=== PATIENT | female | born 1975 | race Caucasian/White ===

== ENCOUNTER 2017-06-06 08:33 | Emergency (ER) | payer MEDICAID ==
[~2017-06-06] VITALS: Ht 154.9 cm; Wt 65.5 kg
[~2017-06-06 08:33] MED LIST: MOTRIN
[2017-06-06 08:35] VITALS: BP 111/67
--- NOTE | 2017-06-06 08:41 | NUR ---
PT AMBULATED TO BED 7
--- NOTE | 2017-06-06 08:42 | NUR ---
Note undone in EDM - 06/06/17 at 0853 by [email or web address] 2/F PRESENT TO ER C/O NAUSEA & EPIGASTRIC PAIN x YESTERDAY. PT STATES PAIN 8/10 SHARP RADIATING TO WHOLE ABDOMEN& BACK. DENIES V/D; SKIN IS PINK/WARM/DRY; AAOX4 WITH EVEN AND STEADY GAIT; LUNGS CLEAR BL; HR EVEN AND REGULAR; PT DENIES ANY FEVER, CP, SOB, OR COUGH AT THIS TIME; PATIENT POSITIONED FOR COMFORT; HOB ELEVATED; BEDRAILS UP X2; BED DOWN. ER MADE AWARE OF PT STATUS.
--- NOTE | 2017-06-06 08:42 | NUR ---
42/F BIB SON C/O NAUSEA & EPIGASTRIC PAIN x YESTERDAY. PT STATES PAIN 8/10 SHARP RADIATING TO WHOLE ABDOMEN & BACK. DENIES V/D; SKIN IS PINK/WARM/DRY; AAOX4 WITH EVEN AND STEADY GAIT; LUNGS CLEAR BL; HR EVEN AND REGULAR; PT DENIES ANY FEVER, CP, SOB, OR COUGH AT THIS TIME; PATIENT POSITIONED FOR COMFORT; HOB ELEVATED; BEDRAILS UP X2; BED DOWN. ER MD MADE AWARE OF PT STATUS.
--- NOTE | 2017-06-06 09:08 | NUR ---
PT C/O NAUSEA & EPIGASTRIC PAIN 05/12.NOTIFIED DR SAENZ.
[2017-06-06] MEDS ORDERED: ONDANSETRON 4 MG/2 ML VIAL IVP ONE (09:10)
[2017-06-06] MEDS ORDERED: HYDROmorphone 1 MG/ML AMP IVP ONE ×2 (09:10→09:50)
--- NOTE | 2017-06-06 09:16 | NUR ---
INSERTED IV CATH NO 22G RIGHT HAND; PT TOLERATED PROCEDURE WELL. IV PATENT& INTACT. ADMINISTERED MEDS OREDER.
--- NOTE | 2017-06-06 09:31 | NUR ---
LAB AT BEDSIDE
--- NOTE | 2017-06-06 09:41 | NUR ---
PT STS PAIN 5/10.Patient appears to be resting comfortably in bed. Vital Signs within normal limits. Respirations even and unlabored.WILL CONTINUE TO MONITOR.
[2017-06-06 09:42] LABS: BASOPHILS # (AUTO) 0.1 K/uL (0.00-0.22); BASOPHILS % (AUTO) 2.3 % (0.0-2.0); EOSINOPHILS # (AUTO) 0.1 K/uL (0-0.4); EOSINOPHILS % (AUTO) 2.4 % (0.0-4.0); HEMOGLOBIN 13.3 g/dL (12.0-16.0); LYMPHOCYTES # (AUTO) 1.1 K/uL (2.5-16.5); LYMPHOCYTES % (AUTO) 19.6 % (20.5-51.1); MEAN CORPUSCULAR HEMOGLOBIN 31 pg (27-31); MEAN CORPUSCULAR HGB CONC 33 g/dL (33-37); MEAN CORPUSCULAR VOLUME 93 fL (80-94); MONOCYTES # (AUTO) 0.5 K/uL (0.8-1.0); MONOCYTES % (AUTO) 8.5 % (1.7-9.3); NEUTROPHILS # (AUTO) 3.8 K/uL (1.8-7.7); NEUTROPHILS % (AUTO) 67.2 % (42.2-75.2); PLATELET COUNT (AUTO) 269 K/uL (140-450); RED BLOOD CELL COUNT(AUTO) 4.31 MIL/uL (4.20-5.40); RED CELL DISTRIBUTION WIDTH 12.5 % (11.6-13.7); WHITE BLOOD COUNT (AUTO) 5.6 K/uL (4.8-10.8)
[2017-06-06 09:55] LABS: ANION GAP 9.3 (8-16); CARBON DIOXIDE 27.3 mmol/L (21-32); CREATININE 0.6 mg/dL (0.6-1.3); POTASSIUM 3.6 mmol/L (3.5-5.1)
[2017-06-06 09:59] LABS: ALBUMIN 3.2 g/dL (3.4-5.0); TOTAL BILIRUBIN 0.3 mg/dL (0.0-1.0)
[2017-06-06 10:03] LABS: PROTHROMBIN TIME 10.8 secs (10.8-13.4)
--- NOTE | 2017-06-06 10:41 | NUR ---
Note undone in [facility] - 06/06/17 at 1104 by [email or web address] PT FEEL ITCHING & RASHES ALL BODY. NOTIFIED DR SAENZ. Addendum: 06/06/17 at 1043 by [email or web address] Amendment undone in [facility] - 06/06/17 at 1104 by [email or web address] Patient being reevaluated by DR SAENZ at bedside.
--- NOTE | 2017-06-06 10:41 | NUR ---
PT FEELS ITCHING & RASHES ALL BODY. NOTIFIED DR SAENZ.
[2017-06-06] MEDS ORDERED: diphenhydrAMINE 50 MG/ML VIAL IVP ONE (10:45)
--- NOTE | 2017-06-06 10:47 | NUR ---
ADMINISTERED BENADRYL 50 MG IV & IVF ORDER.
[2017-06-06] MEDS ORDERED: NACL 0.9% 1,000 ML IV ONE (10:50)
--- NOTE | 2017-06-06 11:08 | NUR ---
Patient appears to be resting comfortably in bed. Vital Signs within normal limits. Respirations even and unlabored.WILL CONTINUE TO MONITOR.
--- NOTE | 2017-06-06 12:20 | NUR ---
IV removed, catheter intact and site benign. Applied folded 4x4 gauze and tape to stop bleeding. Addendum: 06/06/17 at 1230 by [email or web address] DENIES ITCHING AT THIS TIME.
[2017-06-06 12:24] VITALS: BP 101/62
== END 2017-06-06 12:24 | disposition home or self-care (01) ==
LOC: MED 08:33
DX: R10.13 Epigastric pain (principal); R11.2 Nausea with vomiting, unspecified
CPT/HCPCS: 36415; 74176; 80053; 81025; 82150; 83615; 83690; 85025; 85610; 85730; 96361; 96374; 96375; 96376; 99285; J1170; J1200; J2405; J7030; 81002

== ENCOUNTER 2019-01-30 07:26 | Emergency (ER) | payer MEDICAID ==
[~2019-01-30] VITALS: Ht 154.9 cm; Wt 62.6 kg
[2019-01-30 07:31] VITALS: BP 128/102
--- NOTE | 2019-01-30 07:38 | NUR ---
TO BED 5 WITH STEADY GAIT
--- NOTE | 2019-01-30 07:42 | NUR ---
dr thomas at bedside
[2019-01-30] MEDS ORDERED: ACETAMINOPHEN 325 MG TAB PO ONE (07:45)
--- NOTE | 2019-01-30 07:45 | NUR ---
PATIENT PRESENTS TO ED WITH C/O SORE THROAT, BODY ACHES, HEADACHE X LAST NIGHT. PT DENIES N/V/D; SKIN IS PINK/WARM/DRY; AAOX4 WITH EVEN AND STEADY GAIT; LUNGS CLEAR BL; HR EVEN AND REGULAR; PATIENT STATES PAIN OF 10/10 AT THIS TIME; PATIENT POSITIONED FOR COMFORT; HOB ELEVATED; BEDRAILS UP X2; BED DOWN.PENDING ER MD EVALUATION
--- NOTE | 2019-01-30 07:48 | NUR ---
FLU SWAB AND STREP SWAB DONE. LAB NOTIFIED FOR PICK-UP
--- NOTE | 2019-01-30 08:28 | NUR ---
PT C/O PAIN AT 07/12. DR MERCER MADE AWARE.
[2019-01-30] MEDS ORDERED: KETOROLAC 60 MG/2 ML VIAL IM ONE (08:45)
[2019-01-30 09:23] VITALS: BP 122/87
--- NOTE | 2019-01-30 09:24 | NUR ---
Patient discharged with v/s stable. Written and verbal after care instructions given and explained. Patient alert, oriented and verbalized understanding of instructions. Ambulatory with steady gait. All questions addressed prior to discharge. ID band removed. Patient advised to follow up with PMD. Rx of elías mejia given. Patient educated on indication of medication including possible reaction and side effects. Opportunity to ask questions provided and answered.
== END 2019-01-30 09:24 | disposition home or self-care (01) ==
LOC: MED 07:26
DX: B34.9 Viral infection, unspecified (principal); R03.0 Elevated blood-pressure reading, without diagnosis of hypertension; Z79.899 Other long term (current) drug therapy
CPT/HCPCS: 87081; 87804; 96372; 99283; J1885

== ENCOUNTER 2019-03-21 12:56 | Emergency (ER) | payer MEDICAID ==
[~2019-03-21] VITALS: Ht 157.5 cm; Wt 67.2 kg
[2019-03-21 13:03] VITALS: BP 120/79
--- NOTE | 2019-03-21 13:05 | NUR ---
PT AMBULATED TO ER BED 04
--- NOTE | 2019-03-21 13:17 | NUR ---
PT C/O ABSCESS INNER LEFT THIGH FOR 4 DAYS AND HAD FEVER 104 F LAST NIGHT. PT HAS BEEN TREATED FOR SAME PROBLEM BEFORE. DENIES N/V/D; SKIN IS PINK/WARM/DRY; ERYTHEMA AND EDEMA NOTICED ON PT'S LEFT INNER THIGH; PT STATES IT IS PAINFUL WHILE WALKING. AAOX4 WITH EVEN AND STEADY GAIT; PT DENIES ANY CP, SOB, OR COUGH AT THIS TIME; PATIENT STATES PAIN OF 10/10 AT THIS TIME; VSS; PATIENT POSITIONED FOR COMFORT; HOB ELEVATED; BEDRAILS UP X1; BED DOWN. ER MD MADE AWARE OF PT STATUS.
[2019-03-21] MEDS ORDERED: LIDOCAINE 1% 500 MG/50 ML VIAL INJ SCH (13:30)
[2019-03-21] MEDS ORDERED: LIDOCAINE MPF 1% - 5 mL VIAL 5 ML ONE (14:12)
--- NOTE | 2019-03-21 14:25 | NUR ---
ZACH DUTTA FOR I&D PROCEDURE AT BEDSIDE
[2019-03-21 14:52] VITALS: BP 131/65
--- NOTE | 2019-03-21 14:53 | NUR ---
Patient discharged with v/s stable. Written and verbal after care instructions given and explained. Patient alert, oriented and verbalized understanding of instructions. Ambulatory with steady gait. All questions addressed prior to discharge. ID band removed. Patient advised to follow up with PMD. Rx of Spencer and Keflex given. Patient educated on indication of medication including possible reaction and side effects. Opportunity to ask questions provided and answered.
== END 2019-03-21 14:53 | disposition home or self-care (01) ==
LOC: MED 12:56
DX: L02.416 Cutaneous abscess of left lower limb (principal); F17.200 Nicotine dependence, unspecified, uncomplicated; Z79.899 Other long term (current) drug therapy
CPT/HCPCS: 10060; 81002; 81025; 99283; J2001

== ENCOUNTER 2019-10-06 21:54 | Emergency (ER) | payer MEDICAID ==
[~2019-10-06] VITALS: Ht 165.1 cm; Wt 56.7 kg
[2019-10-06 22:05] VITALS: BP 132/75
--- NOTE | 2019-10-06 22:08 | NUR ---
to lobby a/w bed ambulatory
--- NOTE | 2019-10-06 22:15 | NUR ---
EKG PERFORMED IN TRIAGE ROOM WITH FAMILY MEMBER PRESENT
--- NOTE | 2019-10-06 23:09 | NUR ---
PT AMBULATED TO BED 4 WITH FAMILY MEMBER
--- NOTE | 2019-10-06 23:20 | NUR ---
44 YEAR OLD FEMALE COMPLAINS OF 9/10 CHEST PAIN ON INSPIRATION X 2 DAYS. PATIENT STATES THAT SHE HAS HAD PAIN ON INSPIRATION, COUGH WITHOUT MUCUS. PATIENT HAS DIMINISHED LUNG SOUNDS ON AUSCULTATION, PATIENT HAS DIFFICULTY WITH DEEP INHALATION. BREATHING EVEN AND UNLABORED. PATIENT STATES SHE ALSO HAS A HEADACHE. PATIENT ALERT AND ORIENTED, BED IN LOWEST POSITION, LOCKED, BED RAIL UPX1. TRANSLATION USED. PMH - HTN MEDICATIONS - NONE ALLERGIES - NONE Addendum: 10/06/19 at 2396 by MEDJJ BP 132/75
[2019-10-07] MEDS ORDERED: ALBUTEROL 0.083% 2.5 MG/3 ML NEBU INH ONE (00:25)
[2019-10-07] MEDS ORDERED: KETOROLAC 60 MG/2 ML VIAL IM ONE (00:25)
[2019-10-07] MEDS ORDERED: predniSONE 20 MG TAB PO ONE (00:25)
[2019-10-07] MEDS ORDERED: HYDROcodone/APAP 5/325 MG 1 TAB TAB PO ONE (00:25)
--- NOTE | 2019-10-07 01:30 | NUR ---
PATIENT ALERT AND ORIENTED, BREATHING EVEN AND UNLABORED
[2019-10-07 02:24] VITALS: BP 121/78
--- NOTE | 2019-10-07 02:24 | NUR ---
Patient discharged with v/s stable. Written and verbal after care instructions ABOUT INFLUENZA given and explained. Patient alert, oriented and verbalized understanding of instructions. Ambulatory with steady gait. All questions addressed prior to discharge. ID band removed. Patient advised to follow up with PMD. Rx of TAMIFLU AND NAPROSYN given. Patient educated on indication of medication including possible reaction and side effects. Opportunity to ask questions provided and answered.
== END 2019-10-07 02:24 | disposition home or self-care (01) ==
LOC: MED 21:54
DX: J11.1 Influenza due to unidentified influenza virus with other respiratory manifestations (principal); I10 Essential (primary) hypertension; Z79.899 Other long term (current) drug therapy
CPT/HCPCS: 87804; 93005; 94640; 96372; 99284; J1885; J7512; J7613

== ENCOUNTER 2019-11-30 18:19 | Emergency (ER) | payer MEDICAID ==
[~2019-11-30] VITALS: Ht 157.5 cm; Wt 59.0 kg
[2019-11-30 18:33] VITALS: BP 124/81
--- NOTE | 2019-11-30 18:33 | NUR ---
PATIENT AMB TO BED 6
--- NOTE | 2019-11-30 18:52 | NUR ---
44 Y/O FEMALE C/O HEADACHE, DIZZINESS, BLURRED VISION, AND FATIGUE X 1 WK. 7/10 GENERALIZED BODY ACHES. DENIES CHEST PAIN, N/V/D. STATES SHE HAS UNEXPLAINED WEIGHT LOSS. DENIES CHANGE IN APPETITE. RR EVEN AND UNLABORED, POSITIONED FOR COMFORT. X 1 SIDE RAIL RAISED, BED LOCKED AND IN LOW POSITION. MEDHX: DENIES ALLERGIES: NKA
--- NOTE | 2019-11-30 18:54 | NUR ---
LAB AT BEDSIDE
[2019-11-30 19:02] LABS: APPEARANCE,URINE CLEAR (CLEAR); COLOR,URINE YELLOW (YELLOW)
[2019-11-30 19:03] LABS: PH,URINE 5.5 (5.0-9.0)
[2019-11-30 19:03] LABS: BASOPHILS % (AUTO) 0.2 % (0.0-2.0); EOSINOPHILS # (AUTO) 0.1 K/uL (0-0.4); EOSINOPHILS % (AUTO) 0.9 % (0.0-4.0); HEMATOCRIT 41.6 % (36-48); HEMOGLOBIN 14.3 g/dL (12.0-16.0); LYMPHOCYTES # (AUTO) 2.4 K/uL (2.5-16.5); MEAN CORPUSCULAR HEMOGLOBIN 31 pg (27-31); MEAN CORPUSCULAR HGB CONC 35 g/dL (33-37); MEAN CORPUSCULAR VOLUME 89.9 fL (80-94); MONOCYTES # (AUTO) 0.5 K/uL (0.8-1.0); MONOCYTES % (AUTO) 6.5 % (1.7-9.3); NEUTROPHILS % (AUTO) 62.4 % (42.2-75.2); PLATELET COUNT (AUTO) 362 K/uL (140-450); RED BLOOD CELL COUNT(AUTO) 4.63 MIL/uL (4.20-5.40); RED CELL DISTRIBUTION WIDTH 13.1 % (11.6-13.7); WHITE BLOOD COUNT (AUTO) 8.1 K/uL (4.8-10.8)
[2019-11-30 19:06] LABS: BLOOD, URINE 3+ (NEGATIVE); UGLUCOSE NEGATIVE (NEGATIVE)
[2019-11-30 19:07] LABS: BILIRUBIN,URINE NEGATIVE (NEGATIVE); LEUKOCYTE ESTERASE ,URINE NEGATIVE (NEGATIVE); NITRITE, URINE NEGATIVE (NEGATIVE)
[2019-11-30 19:09] LABS: WBC,URINE NONE SEEN /HPF (0-5)
--- NOTE | 2019-11-30 19:13 | NUR ---
REPORT GIVEN TO SERGIO CANTRELL. TRANSFER OF CARE AT THIS TIME
--- NOTE | 2019-11-30 19:13 | NUR ---
REPORT RECIEVED FROM DANIEL HILL. PATIENT SITTING UP IN BED. NO NEEDS ADDRESSED AT THIS TIME.
[2019-11-30 19:16] LABS: ALBUMIN 3.7 g/dL (3.4-5.0); ANION GAP 8.7 (8-16); CARBON DIOXIDE 28.5 mmol/L (21-32); CREATININE 0.7 mg/dL (0.6-1.3); POTASSIUM 4.2 mmol/L (3.5-5.1); TOTAL BILIRUBIN 0.2 mg/dL (0.0-1.0)
[2019-11-30 20:31] VITALS: BP 124/81
--- NOTE | 2019-11-30 20:32 | NUR ---
PATIENT STATES SHE DOES NOT WANT TO WAIT TO BE TREATED BY DOCTOR. LWBS AT THIS TIME.
--- NOTE | 2019-11-30 20:33 | NUR ---
PATIENT ELOPED FROM FACILITY. DISCHARGE INSTRUCTIONS NOT GIVEN TO PATIENT. DR. RASHEED NOTIFIED.
== END 2019-11-30 20:33 | disposition left against medical advice (07) ==
LOC: MED 18:19
DX: R42 Dizziness and giddiness (principal); I10 Essential (primary) hypertension
CPT/HCPCS: 36415; 80053; 81001; 85025; 99283

== ENCOUNTER 2020-10-01 16:01 | Emergency (ER) | payer MEDICAID ==
[~2020-10-01] VITALS: Ht 162.6 cm; Wt 59.9 kg
[2020-10-01 16:06] VITALS: BP 152/71
[2020-10-01] MEDS ORDERED: KETOROLAC 30 MG/ML VIAL IM ONE (16:25)
[2020-10-01] MEDS ORDERED: KETOROLAC 30 MG/ML VIAL ONE (16:44)
--- NOTE | 2020-10-01 16:48 | NUR ---
PT DECLINED TORADOL, STATED SHE THOUGHT SHE WAS ALLERGIC TO TORADOL. SWAPNIL CAMPO CHANGED ORDER TO NORCO, PT DECLINED STATING DOES NOT HELP WITH PAIN. PER PT PT MISTOOK TORADOL OR TYLENOL WITH CODEINE AND REQUESTING TORADOL IM. SWAPNIL CAMPO MADE AWARE. TORADOL GIVEN IM.
[2020-10-01] MEDS: HYDROcodone/APAP 5/325 MG 1 TAB TAB PO ONE (16:50)
[2020-10-01] MEDS: LIDOCAINE MPF 1% 10 MG/ML VIAL INJ ONE (16:50)
--- NOTE | 2020-10-01 16:54 | NUR ---
45 Y/F PRESENTS TO ED C/O SUPRAPUBIC BOIL X4 DAYS /AXILLARY BOIL X1 DAY CAUSING PAIN, AND MILD BLEEDING. PAIN UNRELIEVED BY NORCO. NO PMH NKDA
[2020-10-01 17:27] VITALS: BP 152/71
--- NOTE | 2020-10-01 17:28 | NUR ---
Patient discharged with v/s stable. Written and verbal after care instructions given and explained. Patient alert, oriented and verbalized understanding of instructions. Ambulatory with steady gait. All questions addressed prior to discharge. ID band removed. Patient advised to follow up with PMD. Rx of BACTRIM, NORCO given. Patient educated on indication of medication including possible reaction and side effects. Opportunity to ask questions provided and answered.
== END 2020-10-01 17:28 | disposition home or self-care (01) ==
LOC: MED 16:01
DX: L02.411 Cutaneous abscess of right axilla (principal); Z79.899 Other long term (current) drug therapy; Z98.890 Other specified postprocedural states
CPT/HCPCS: 10060; 99283; J1885; J2001

== ENCOUNTER 2020-10-05 09:18 | Emergency (ER) | payer MEDICAID ==
[~2020-10-05] VITALS: Ht 154.9 cm; Wt 61.2 kg
[2020-10-05 09:25] VITALS: BP 119/80
--- NOTE | 2020-10-05 09:29 | NUR ---
Pt to lobby to wait to be seen.
--- NOTE | 2020-10-05 09:43 | NUR ---
PT TAKEN TO CHAIR C. DR. SHAY EVALUATING PATIENT.
[2020-10-05 11:21] VITALS: BP 119/80
--- NOTE | 2020-10-05 11:22 | NUR ---
Patient does not wish to proceed with medical care recommended by Dr. Olivo. Patient given information related to possible complications, up to and including , which could occur as a result of leaving hospital at this time. Patient verbalizes understanding of risks involved leaving against medical advice. Patient has signed AMA form.
== END 2020-10-05 11:22 | disposition left against medical advice (07) ==
LOC: MED 09:18
DX: L02.411 Cutaneous abscess of right axilla (principal); Z48.00 Encounter for change or removal of nonsurgical wound dressing
CPT/HCPCS: 99281

== ENCOUNTER 2021-06-20 20:13 | Emergency (ER) | payer MEDICAID ==
[~2021-06-20] VITALS: Ht 154.9 cm; Wt 61.2 kg
[2021-06-20 20:24] VITALS: BP 152/90
--- NOTE | 2021-06-20 20:24 | NUR ---
TO BED VIA WHEEL CHAIR
--- NOTE | 2021-06-20 20:45 | NUR ---
46 Y/O FEMALE C/O L THIGH AND L KNEE PAIN S/P FALLING IN THE STORE AFTER STEPPING ON STRAWBERRY AT 1920. PT NOW C/O 10/10 PAIN THAT SHE DESCRIBES SHARP. PT ABLE TO WIGGLE TOES WITH FULL SENSATION. PT STATES PAIN IS WORSE WITH MOVEMENT. PT DENIES TAKING ANYTHING FOR PAIN. PT A/O X4 WITH EVEN AND UNLABORED RESPIRATIONS. PMH:DENIES NKDA
--- NOTE | 2021-06-20 21:17 | NUR ---
DR DALE AT BEDSIDE EVALUATING PT
[2021-06-20] MEDS ORDERED: ONDANSETRON 4 MG ODT PO ONE (21:20)
[2021-06-20] MEDS ORDERED: HYDROcodone/APAP 5/325 MG 1 TAB TAB PO ONE (21:20)
--- NOTE | 2021-06-20 21:21 | NUR ---
RAD AT BEDSIDE
[2021-06-20] MEDS ORDERED: IBUP-2213 PO (22:02)
--- NOTE | 2021-06-20 22:21 | NUR ---
Patient discharged with v/s stable. Written and verbal after care instructionsABOUT ANKLE SPRAIN AND KNEE SPRAIN given and explained. Patient alert, oriented and verbalized understanding of instructions. Ambulatory with steady gait. All questions addressed prior to discharge. ID band removed. Patient advised to follow up with PMD. Rx of IBUPROFEN given. Patient educated on indication of medication including possible reaction and side effects. Opportunity to ask questions provided and answered.
== END 2021-06-20 22:21 | disposition home or self-care (01) ==
LOC: MED 20:13
DX: S93.402A Sprain of unspecified ligament of left ankle, initial encounter (principal); M25.562 Pain in left knee; Z79.899 Other long term (current) drug therapy; W01.0XXA Fall on same level from slipping, tripping and stumbling without subsequent striking against object, initial encounter; Y93.89 Activity, other specified; Y92.89 Other specified places as the place of occurrence of the external cause; Y99.8 Other external cause status
CPT/HCPCS: 73562; 73610; 99284; Q0092; Q0162

== ENCOUNTER 2021-10-20 16:59 | Emergency (ER) | payer MEDICAID ==
[~2021-10-20] VITALS: Ht 154.9 cm; Wt 63.5 kg
[~2021-10-20 16:59] MED LIST changes: +IBUP-2213 PO
[2021-10-20 17:16] VITALS: BP 142/82
[2021-10-20] MEDS ORDERED: DICYCLOMINE HCL LIQUID 20 MG, ALUMINUM HYD/MAG/SIMETHICONE 30 ML, LIDOCAINE VISCOUS 2% ... PO ONE ×3 (17:40)
[2021-10-20] MEDS ORDERED: ONDANSETRON 4 MG ODT PO ONE (17:40)
[2021-10-20 17:53] LABS: APPEARANCE,URINE CLEAR (CLEAR); BILIRUBIN,URINE NEGATIVE (NEGATIVE); BLOOD, URINE TRACE-I (NEGATIVE); COLOR,URINE YELLOW (YELLOW); LEUKOCYTE ESTERASE ,URINE NEGATIVE (NEGATIVE); NITRITE, URINE NEGATIVE (NEGATIVE); UGLUCOSE NEGATIVE (NEGATIVE)
[2021-10-20 18:12] LABS: BASOPHILS % (AUTO) 0.2 % (0.0-2.0); EOSINOPHILS # (AUTO) 0.1 K/uL (0-0.4); EOSINOPHILS % (AUTO) 0.8 % (0.0-4.0); HEMATOCRIT 42.7 % (36-48); HEMOGLOBIN 14.8 g/dL (12.0-16.0); LYMPHOCYTES # (AUTO) 1.9 K/uL (2.5-16.5); LYMPHOCYTES % (AUTO) 18.2 % (20.5-51.1); MEAN CORPUSCULAR HEMOGLOBIN 31 pg (27-31); MEAN CORPUSCULAR HGB CONC 35 g/dL (33-37); MEAN CORPUSCULAR VOLUME 90.1 fL (80-94); MONOCYTES # (AUTO) 0.6 K/uL (0.8-1.0); MONOCYTES % (AUTO) 6.2 % (1.7-9.3); NEUTROPHILS # (AUTO) 7.6 K/uL (1.8-7.7); NEUTROPHILS % (AUTO) 74.6 % (42.2-75.2); PLATELET COUNT (AUTO) 368 K/uL (140-450); RED BLOOD CELL COUNT(AUTO) 4.74 MIL/uL (4.20-5.40); RED CELL DISTRIBUTION WIDTH 13.3 % (11.6-13.7); WHITE BLOOD COUNT (AUTO) 10.2 K/uL (4.8-10.8)
[2021-10-20 18:13] LABS: RBC,URINE 0-5 /HPF (0-5); WBC,URINE NONE SEEN /HPF (0-5)
[2021-10-20] MEDS ORDERED: DICYCLOMINE HCL LIQUID 10 MG/5 ML UDC ONE (18:18)
[2021-10-20] MEDS ORDERED: ALUMINUM HYD/MAG/SIMETHICONE 30 ML UDC ONE (18:18)
[2021-10-20 18:30] LABS: ALBUMIN 3.6 g/dL (3.4-5.0); ANION GAP 12.7 (8-16); CARBON DIOXIDE 28.2 mmol/L (21-32); CREATININE 0.6 mg/dL (0.6-1.3); POTASSIUM 3.9 mmol/L (3.5-5.1); TOTAL BILIRUBIN 0.5 mg/dL (0.0-1.0)
[2021-10-20] MEDS ORDERED: MORPHINE SULFATE 4 MG/ML SYR IM ONE (19:25)
[2021-10-20] MEDS ORDERED: HYDROcodone/APAP 7.5/325 MG 1 TAB PO ONE (20:35)
[2021-10-20] MEDS ORDERED: TAMS0.4C96 PO (20:39)
[2021-10-20] MEDS ORDERED: IBUP-2213 PO (20:39)
[2021-10-20] MEDS ORDERED: HYDR-5080 PO (20:39)
[2021-10-20 21:00] VITALS: BP 142/82
--- NOTE | 2021-10-20 21:00 | NUR ---
Patient discharged with v/s stable. Written and verbal after care instructions given and explained. Patient alert, oriented and verbalized understanding of instructions. Ambulatory with steady gait. All questions addressed prior to discharge. ID band removed. Patient advised to follow up with PMD. Rx of FLOMAX, IBUPROFEN, AND NORCO given. Patient educated on indication of medication including possible reaction and side effects. Opportunity to ask questions provided and answered.
[2021-10-23] MEDS ORDERED: LIDOCAINE 2% 100 MG/5 ML UJET TP ONE (16:05)
== END 2021-10-20 21:00 | disposition home or self-care (01) ==
LOC: MED 16:59
DX: N23 Unspecified renal colic (principal); Z79.899 Other long term (current) drug therapy
CPT/HCPCS: 36415; 74176; 80053; 81001; 81025; 83690; 85025; 96372; 99284; J2270; Q0162

== ENCOUNTER 2022-06-22 11:12 | Emergency (ER) | payer MEDICAID ==
[~2022-06-22] VITALS: Ht 154.9 cm; Wt 68.0 kg
[~2022-06-22 11:12] MED LIST changes: +HYDR-5080 PO; +TAMS0.4C96 PO
[2022-06-22 11:24] VITALS: BP 131/77
--- NOTE | 2022-06-22 11:32 | NUR ---
PT AMB TO BED 5.
--- NOTE | 2022-06-22 11:45 | NUR ---
MD STRICKLAND AT BEDSIDE FOR EVALUATION
--- NOTE | 2022-06-22 12:01 | NUR ---
47YO FEMALE PT C/O INCONSISTENT PRESSURED 8/10 CHEST PAIN X4DAYS. EPISODES LASTING ABOUT 1-2HRS ALONG W/ HEADACHE , BLURRY VISION AND L SIDED NUMBING. DENIES RELIEF AFTER TYLENOL. DENIES LOSS OF SENSATION, SOB, N/V/D, FEVER OR CHILLS. PT AAOX4, ON MEDICAL OFFICE REPRESENTATIVE. NO VISIBLE DISTRESS. RSPIRATIONS EVEN AND UNLABORED. AMBULATORY W/ STEADY GAIT. YAKUT SPEAKING. HX: DENIES NKA
[2022-06-22] MEDS: KETOROLAC 30 MG/ML VIAL IM ONE (12:20)
[2022-06-22 12:35] LABS: BASOPHILS % (AUTO) 0.2 % (0.0-2.0); EOSINOPHILS # (AUTO) 0.1 K/uL (0-0.4); EOSINOPHILS % (AUTO) 0.8 % (0.0-4.0); HEMATOCRIT 40.8 % (36-48); HEMOGLOBIN 13.9 g/dL (12.0-16.0); LYMPHOCYTES % (AUTO) 30.5 % (20.5-51.1); MEAN CORPUSCULAR HEMOGLOBIN 31 pg (27-31); MEAN CORPUSCULAR HGB CONC 34 g/dL (33-37); MEAN CORPUSCULAR VOLUME 90.1 fL (80-94); MONOCYTES # (AUTO) 0.4 K/uL (0.8-1.0); MONOCYTES % (AUTO) 6.6 % (1.7-9.3); NEUTROPHILS # (AUTO) 4.2 K/uL (1.8-7.7); NEUTROPHILS % (AUTO) 61.9 % (42.2-75.2); PLATELET COUNT (AUTO) 348 K/uL (140-450); RED BLOOD CELL COUNT(AUTO) 4.52 MIL/uL (4.20-5.40); RED CELL DISTRIBUTION WIDTH 13.8 % (11.6-13.7); WHITE BLOOD COUNT (AUTO) 6.7 K/uL (4.8-10.8)
[2022-06-22 13:32] LABS: ALBUMIN 3.4 g/dL (3.4-5.0); ANION GAP 13.1 (8-16); ASPARTATE AMINOTRANSFERASE 14 U/L (15-37); CARBON DIOXIDE 24.7 mmol/L (21-32); CHLORIDE 106 mmol/L (98-107); CREATININE 0.7 mg/dL (0.6-1.3); GFR ARICAN-AMERICAN 115 mL/min (>90); GLUCOSE 95 mg/dL (74-106); POTASSIUM 3.8 mmol/L (3.5-5.1); SODIUM SERUM 140 mmol/L (136-145); TOTAL BILIRUBIN 0.5 mg/dL (0.0-1.0); UREA NITROGEN, BLOOD 14 mg/dL (7-18)
[2022-06-22] MEDS ORDERED: NAPR-54 PO (14:01)
[2022-06-22] MEDS: HYDROcodone/APAP 5/325 MG 1 TAB TAB PO ONE (14:11)
[2022-06-22 14:23] VITALS: BP 130/84
--- NOTE | 2022-06-22 14:23 | NUR ---
Patient discharged with v/s stable. Written and verbal after care instructions FOR MUSCLE CRAMPS, NON SPECIFIC CHETS PAIN AND BLURRED VISION given and explained. Patient alert, oriented and verbalized understanding of instructions. Ambulatory with steady gait. All questions addressed prior to discharge. ID band removed. Patient advised to follow up with PMD. Rx of NAPROXEN given. Opportunity to ask questions provided and answered.
--- NOTE | 2022-06-22 14:23 | NUR ---
Chart checked and completed. The patient's care was reviewed and supervised by Sumi Soto RN.
== END 2022-06-22 14:23 | disposition home or self-care (01) ==
LOC: MED 11:12
DX: R07.9 Chest pain, unspecified (principal); M54.2 Cervicalgia; M54.9 Dorsalgia, unspecified; H53.8 Other visual disturbances; Z79.899 Other long term (current) drug therapy; Z98.890 Other specified postprocedural states
CPT/HCPCS: 36415; 71045; 80053; 84484; 85025; 93005; 96372; 99285; J1885; Q0092